=== PATIENT | male | born 1975 | race Caucasian/White ===

== ENCOUNTER 2016-11-29 18:24 | Emergency (ER) | payer OTHER ==
[~2016-11-29] VITALS: Ht 160 cm; Wt 115.0 kg
[2016-11-29 18:30] VITALS: Ht 160 cm; Wt 115.0 kg
[2016-11-29 19:31] LABS: BASOPHILS % 0.2 % (0.0-2.0); EOSINOPHILS # 0.5 10^3/ul (0.0-0.5); EOSINOPHILS % 3.8 % (0.0-7.0); HEMATOCRIT 44.8 % (42.0-52.0); HEMOGLOBIN 15.4 g/dl (14.0-18.0); LYMPHOCYTES # 3.9 10^3/ul (0.8-2.9); LYMPHOCYTES % 30.6 % (15.0-51.0); MEAN CORPUSCULAR HEMOGLOBIN 30.2 pg (29.0-33.0); MEAN CORPUSCULAR HGB CONC 34.3 g/dl (32.0-37.0); MEAN CORPUSCULAR VOLUME 88.1 fl (82.0-101.0); MEAN PLATELET VOLUME 7.8 fl (7.4-10.4); MONOCYTE # 0.8 10^3/ul (0.3-0.9); NEUTROPHIL # 7.7 10^3/ul (1.6-7.5); NEUTROPHILS % 59.4 % (39.0-77.0); PLATELET COUNT 385 10^3/UL (140-440); RED BLOOD COUNT 5.08 10^6/ul (4.70-6.10); RED CELL DISTRIBUTION WIDTH 13.1 % (11.5-14.5); UNCORRECTED WBC 12.9 10^3/ul (4.8-10.8); WHITE BLOOD COUNT 12.9 10^3/ul (4.8-10.8)
[2016-11-29 19:32] LABS: ADD UMIC YES; CONDITION 1; URINE BILIRUBIN (Dip) NEGATIVE (NEGATIVE); URINE BLOOD (Dip) NEGATIVE (NEGATIVE); URINE COLOR LT. YELLOW (YELLOW); URINE GLUCOSE (Dip) NEGATIVE (NEGATIVE); URINE KETONES (Dip) NEGATIVE (NEGATIVE); URINE LEUKOCYTE ESTERASE (Dip) NEGATIVE (NEGATIVE); URINE NITRITE (Dip) NEGATIVE (NEGATIVE); URINE TOTAL PROTEIN (Dip) 1+ (NEGATIVE); URINE UROBILINOGEN (Dip) 0.2 E.U./dL (0.1-1.0)
[2016-11-29 19:41] LABS: SQUAMOUS EPITHELIAL CELL,UR RARE; URINE RBCS 0-2 /HPF (0)
[2016-11-29 19:46] LABS: CANNABINOIDS Negative (NEGATIVE)
[2016-11-29 19:53] LABS: BARBITURATES Negative (NEGATIVE); BENZODIAZEPINES Negative (NEGATIVE); COCAINE Negative (NEGATIVE); OPIATES Negative (NEGATIVE)
[2016-11-29 20:18] LABS: ALBUMIN 4.2 g/dl (3.3-4.9)
[2016-11-29 20:19] LABS: CHLORIDE 99 mmol/L (97-110); POTASSIUM 3.7 mmol/L (3.5-5.1); SODIUM 142 mmol/L (135-144)
[2016-11-29 20:21] LABS: ALBUMIN/GLOBULIN RATIO 0.97; ANION GAP 17 (8-16); ASPARTATE AMINO TRANSFERASE 43 IU/L (15-46); BILIRUBIN,INDIRECT 0.9 mg/dl (0-1.1); BILIRUBIN,TOTAL 0.9 mg/dl (0.2-1.3); CARBON DIOXIDE 30 mmol/L (21-31); CREATININE 1.12 mg/dl (0.61-1.24); TOTAL PROTEIN 8.5 g/dl (6.1-8.1)
[2016-11-29 20:22] LABS: ALANINE AMINOTRANSFERASE 54 IU/L (13-69); ALKALINE PHOSPHATASE 79 IU/L (42-121); BLOOD UREA NITROGEN 16 mg/dl (7-20); CALCIUM 9.5 mg/dl (8.4-10.2); GLUCOSE 107 mg/dl (70-220)
[2016-11-29 20:23] LABS: ACETAMINOPHEN < 10.0 ug/ml (10.0-30.0); ETHANOL < 10.0 mg/dl; SALICYLATE < 1.0 mg/dl (5.0-30.0)
--- NOTE | 2016-11-29 21:18 | PSY ---
Date/Time of Note Date/Time of Note DATE: 11/29/16 TIME: 21:05 Psychiatric Subjective Eval Consent Pt consented to telemedicine: Yes Subjective Evaluation Patient location: emergency Chief Complaint: BIB [facility] "DEPRESSION AFTER BREAKING UP WITH GIRLFRIEND" DENIES SI, HI Reason for consult: suicidal ideation History of present illness 41M BIB Family for DTS s/o breakup with his girlfriend of 3 years. Patient reports similar episode 10 years ago after a breakup with his girlfriend at that time and ended up being hospitalized for 2 weeks. He endorses feelings of depression and suicidal ideation x 1 day after his argument. Endorses crying spells, poor sleep and feeling unsafe at this time with plans to cut himself. Denies h/o mood swings or psychosis. Past psychiatric history IP: x1 at unknown psych facility x 2 weeks for similar episode OP: none Rx: was on medications previously after first hospitalization but cannot recall SA: attempted to cut himself back in 1996 which led to his first hospitalization Hospitalization: yes Family History denied Medical history Problems Medical Problems: (1) Anxiety Status: Acute (2) Depression Status: Acute Allergies: Coded Allergies: No Known Allergy (Unverified , 11/02/14) Substance Abuse Substance use: No known substance abuse Substance abuse history: No Prior substance abuse treatmen: No Social History Marital status: single Level of education: high school DPA/Conservatorship: No 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/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: works at [employer] Psychiatric Objective Eval Review of Systems: Review of Systems: Not Applicable Physical Examination: Physical Examination: Applicable Sleep: Insomnia Appetite: Adequate Energy: Decreased Interest: Decreased Mental Status Examination: Appearance: Groomed Eye Contact: Fair Psychomotor Activity: Normal Behavior: Cooperative Speech: Clear AFFECT: Depressed Mood: Depressed Though Process: Linear Thought Content: Other (hopelessness) Suicidal: Yes Homicidal: No On 72 hour hold: No Orientation: x4 Cognition: Alert Insight: Impared Judgement: Impared Attention Span: Intact Laboratory Results Laboratory Tests Test 11/29/16 19:15 Acetaminophen Level < 10.0ug/ml Alanine Aminotransferase (ALT/SGPT) 54IU/L Albumin 4.2g/dl Albumin/Globulin Ratio 0.97 Alkaline Phosphatase 79IU/L Anion Gap 17 Aspartate Amino Transf (AST/SGOT) 43IU/L Basophils # 0.010^3/ul Basophils % 0.2% Blood Urea Nitrogen 16mg/dl Calcium Level 9.5mg/dl Carbon Dioxide Level 30mmol/L Chloride Level 99mmol/L Creatinine 1.12mg/dl Direct Bilirubin 0.00mg/dl Eosinophils # 0.510^3/ul Eosinophils % 3.8% Ethyl Alcohol Level < 10.0mg/dl Globulin 4.30g/dl Glucose Level 107mg/dl Hematocrit 44.8% Hemoglobin 15.4g/dl Indirect Bilirubin 0.9mg/dl Lymphocytes # 3.910^3/ul Lymphocytes % 30.6% Mean Corpuscular Hemoglobin 30.2pg Mean Corpuscular Hemoglobin Concent 34.3g/dl Mean Corpuscular Volume 88.1fl Mean Platelet Volume 7.8fl Monocytes # 0.810^3/ul Monocytes % 6.0% Neutrophils # 7.710^3/ul Neutrophils % 59.4% Nucleated Red Blood Cells # 0.010^3/ul Nucleated Red Blood Cells % 0.0/100WBC Platelet Count 11220^3/UL Potassium Level 3.7mmol/L Red Blood Count 5.0810^6/ul Red Cell Distribution Width 13.1% Salicylates Level < 1.0mg/dl Sodium Level 142mmol/L Total Bilirubin 0.9mg/dl Total Protein 8.5g/dl Urine Amphetamines Screen Negative Urine Barbiturates Negative Urine Benzodiazepines Screen Negative Urine Bilirubin NEGATIVE Urine Cannabinoids Negative Urine Clarity CLEAR Urine Cocaine Screen Negative Urine Color LT. YELLOW Urine Glucose NEGATIVE% Urine Hemoglobin NEGATIVE Urine Ketones NEGATIVE Urine Leukocyte Esterase NEGATIVE Urine Microscopic RBC 0-2/HPF Urine Microscopic WBC 0-2/HPF Urine Nitrite NEGATIVE Urine Opiates Screen Negative Urine Specific [place] 1.025 Urine Squamous Epithelial Cells RARE Urine Total Protein 1+ Urine Urobilinogen 0.2 E.U./dL Urine pH 6.0 White Blood Count 12.910^3/ul Assessment and Plan Assessment/Diagnosis [place] I: Depression, unspecified; r/o adjustment disorder [place] II: deferred [place] III: see medical chart [place] IV: primary support system [place] V: GAF 30 Recommendation/Plan Medication Management Follow-up/Disposition At this time, given recent stressor and h/o self-harm in similar situation, patient remains at risk for danger to self and would benefit from stabilization on inpatient psychiatric unit. He is willingly to accept VOLUNTARY treatment on an inpatient psychiatric unit. If circumstances change and he refused admission , a 5150 hold may be warranted at that time and would require a new consult at that time. 1) Admit to Inpatient psych VOLUNTARY 2) If refuses, place new consult for possible 5150 hold. 5150 Recommendation: VOLUNTARY admission, no hold warranted at this time. LUCIA BRIAN MD Nov 29, 2016 21:17
--- NOTE | 2016-11-29 21:25 | ERA ---
ER Documentation Chief Complaint Date/Time DATE: 11/29/16 TIME: 21:23 Chief Complaint BIB [facility]ATH[facility] "DEPRESSION AFTER BREAKING UP WITH GIRLFRIEND" DENIES SI, HI HPI This is a 41-year-old male who presents to the emergency room for evaluation of depression. The patient does state that he has been feeling depressed for the past 2 days because he broke up with his girlfriend. The patient states that he wants to kill himself, he does not have a plan site in place. This patient is accompanied with a family friend who states that he has tried to cut himself previously. The patient denies any cutting today. The patient came to the ER for evaluation and denies taking any illicit drugs or alcohol. ROS All systems reviewed and are negative except as per history of present illness. Medications Home Meds No Active Prescriptions or Reported Meds Allergies Allergies: Coded Allergies: No Known Allergy (Unverified , 11/02/14) PMhx/Soc History of Surgery: No Anesthesia Reaction: No Hx Neurological Disorder: No Hx Respiratory Disorders: No Hx Cardiac Disorders: No Hx Psychiatric Problems: Yes (Depression) Hx Miscellaneous Medical Probl: No Hx Alcohol Use: Yes (social) Hx Substance Use: No Hx Tobacco Use: Yes Smoking Status: Never smoker Physical Exam Vitals Vital Signs Date Time Temp Pulse Resp B/P Pulse Ox O2 Delivery O2 Flow Rate FiO2 11/29/16 18:30 97.8 87 18 193/99 99 Physical Exam Const: No acute distress Head: Atraumatic Eyes: Normal Conjunctiva ENT: Normal External Ears, Nose and Mouth. Neck: Full range of motion..~ No meningismus. Resp: Clear to auscultation bilaterally Cardio: Regular rate and rhythm, no murmurs Abd: Soft, non tender, non distended. Normal bowel sounds Skin: No petechiae or rashes Back: No midline or flank tenderness Ext: No cyanosis, or edema Neur: Awake and alert Psych: Flat affect, tearful Result Diagram: 11/29/16191411/29/161914 Results 24 hrs Laboratory Tests Test 11/29/16 19:15 Acetaminophen Level < 10.0ug/ml Alanine Aminotransferase (ALT/SGPT) 54IU/L Albumin 4.2g/dl Albumin/Globulin Ratio 0.97 Alkaline Phosphatase 79IU/L Anion Gap 17 Aspartate Amino Transf (AST/SGOT) 43IU/L Basophils # 0.010^3/ul Basophils % 0.2% Blood Urea Nitrogen 16mg/dl Calcium Level 9.5mg/dl Carbon Dioxide Level 30mmol/L Chloride Level 99mmol/L Creatinine 1.12mg/dl Direct Bilirubin 0.00mg/dl Eosinophils # 0.510^3/ul Eosinophils % 3.8% Ethyl Alcohol Level < 10.0mg/dl Globulin 4.30g/dl Glucose Level 107mg/dl Hematocrit 44.8% Hemoglobin 15.4g/dl Indirect Bilirubin 0.9mg/dl Lymphocytes # 3.910^3/ul Lymphocytes % 30.6% Mean Corpuscular Hemoglobin 30.2pg Mean Corpuscular Hemoglobin Concent 34.3g/dl Mean Corpuscular Volume 88.1fl Mean Platelet Volume 7.8fl Monocytes # 0.810^3/ul Monocytes % 6.0% Neutrophils # 7.710^3/ul Neutrophils % 59.4% Nucleated Red Blood Cells # 0.010^3/ul Nucleated Red Blood Cells % 0.0/100WBC Platelet Count 42687^3/UL Potassium Level 3.7mmol/L Red Blood Count 5.0810^6/ul Red Cell Distribution Width 13.1% Salicylates Level < 1.0mg/dl Sodium Level 142mmol/L Total Bilirubin 0.9mg/dl Total Protein 8.5g/dl Urine Amphetamines Screen Negative Urine Barbiturates Negative Urine Benzodiazepines Screen Negative Urine Bilirubin NEGATIVE Urine Cannabinoids Negative Urine Clarity CLEAR Urine Cocaine Screen Negative Urine Color LT. YELLOW Urine Glucose NEGATIVE% Urine Hemoglobin NEGATIVE Urine Ketones NEGATIVE Urine Leukocyte Esterase NEGATIVE Urine Microscopic RBC 0-2/HPF Urine Microscopic WBC 0-2/HPF Urine Nitrite NEGATIVE Urine Opiates Screen Negative Urine Specific [place] 1.025 Urine Squamous Epithelial Cells RARE Urine Total Protein 1+ Urine Urobilinogen 0.2 E.U./dL Urine pH 6.0 White Blood Count 12.910^3/ul Procedures/MDM This 41-year-old male presents to the ER for evaluation of depression and suicidal ideation after breaking up with his girlfriend. He has noticed plans in place. He was medically cleared, and was seen by tele-psych who recommended voluntary admission to inpatient psychiatric unit. We will try to transfer this patient to accepting facility at this time. Patient presents with symptomatology consistent with the decompensation of previously diagnosed psychiatric disease. Based on history, physical exam and appropriate lab tests , I appreciate no evidence of significant life-threatening injury or illness that includes a psychiatric hospitalization. Patient is thus "medically clear" for psychiatric admission. In regards to the psychiatric complaints, this patient has clear evidence of high risk psychiatric symptoms with significant risk for decompensation, thus requiring admission to the hospital for stabilization. Departure Diagnosis: Primary Impression: Depression Additional Impression: Suicidal ideation Condition: TYESHA Mcginins DO Nov 29, 2016 21:25
[2016-11-30] MEDS ORDERED: ACETAMINOPHEN 325 MG TAB PO ONE (09:00)
[2016-11-30] MEDS ORDERED: NICARDipine HCL 30 MG CAPSULE PO ONE (12:00)
[2016-11-30] MEDS ORDERED: LORAZEPAM 1 MG TAB PO ONE (17:00)
[2016-11-30] MEDS ORDERED: IBUPROFEN 600 MG TAB PO ONE (20:00)
[2016-11-30 22:48] VITALS: BP 138/81; PULSE 94; RESP 17; TEMP 98.1
== END 2016-11-30 22:56 ==
LOC: E/R 18:24
DX: F32.9 Major depressive disorder, single episode, unspecified (principal); R40.2252 Coma scale, best verbal response, oriented, at arrival to emergency department; R45.851 Suicidal ideations; R40.2142 Coma scale, eyes open, spontaneous, at arrival to emergency department; R40.2362 Coma scale, best motor response, obeys commands, at arrival to emergency department; Z87.891 Personal history of nicotine dependence
CPT/HCPCS: 36415; 80053; 80306; 80307; 81001; 81003; 85025; 99285

== ENCOUNTER 2017-04-15 17:21 | Emergency (ER) | payer OTHER ==
[~2017-04-15] VITALS: Ht 160 cm; Wt 115.0 kg
[2017-04-15 17:23] VITALS: Ht 160 cm; Wt 115.0 kg
[2017-04-15 18:16] LABS: BASOPHILS % 0.4 % (0.0-2.0); EOSINOPHILS # 0.4 10^3/ul (0.0-0.5); EOSINOPHILS % 3.5 % (0.0-7.0); HEMOGLOBIN 15.2 g/dl (14.0-18.0); LYMPHOCYTES # 2.1 10^3/ul (0.8-2.9); LYMPHOCYTES % 20.1 % (15.0-51.0); MEAN CORPUSCULAR HEMOGLOBIN 29.5 pg (29.0-33.0); MEAN CORPUSCULAR VOLUME 89.1 fl (82.0-101.0); MEAN PLATELET VOLUME 9.3 fl (7.4-10.4); MONOCYTE # 0.5 10^3/ul (0.3-0.9); MONOCYTES % 5.1 % (0.0-11.0); NEUTROPHIL # 7.5 10^3/ul (1.6-7.5); NEUTROPHILS % 70.5 % (39.0-77.0); PLATELET COUNT 387 10^3/UL (140-415); RED BLOOD COUNT 5.16 10^6/ul (4.70-6.10); RED CELL DISTRIBUTION WIDTH 12.6 % (11.5-14.5); WHITE BLOOD COUNT 10.6 10^3/ul (4.8-10.8)
[2017-04-15 18:25] LABS: ADD UMIC YES; UR ASCORBIC ACID NEGATIVE (NEGATIVE); UR BILIRUBIN (Dip) NEGATIVE (NEGATIVE); UR BLOOD (Dip) 1+ mg/dL (NEGATIVE); UR CLARITY SLIGHTLY CLOUDY (CLEAR); UR COLOR AMBER (YELLOW); UR GLUCOSE (Dip) NEGATIVE (NEGATIVE); UR KETONES (Dip) NEGATIVE (NEGATIVE); UR LEUKOCYTE ESTERASE (Dip) NEGATIVE Leu/ul (NEGATIVE); UR MUCUS FEW /HPF (NONE SEEN); UR NITRITE (Dip) NEGATIVE (NEGATIVE); UR RBC 25 /HPF (0-5); UR SPECIFIC GRAVITY (Dip) 1.021 (1.003-1.030); UR TOTAL PROTEIN (Dip) 2+ mg/dl (NEGATIVE); UR UROBILINOGEN (Dip) NEGATIVE (NEGATIVE)
[2017-04-15 18:47] LABS: ALANINE AMINOTRANSFERASE 47 IU/L (13-69); ALBUMIN/GLOBULIN RATIO 1.35; ALKALINE PHOSPHATASE 66 IU/L (42-121); ANION GAP 13 (8-16); ASPARTATE AMINO TRANSFERASE 38 IU/L (15-46); BLOOD UREA NITROGEN 18 mg/dl (7-20); CALCIUM 9.8 mg/dl (8.4-10.2); CARBON DIOXIDE 30 mmol/L (21-31); CHLORIDE 100 mmol/L (97-110); CREATININE 1.43 mg/dl (0.61-1.24); GLUCOSE 147 mg/dl (70-220); POTASSIUM 3.9 mmol/L (3.5-5.1); SODIUM 139 mmol/L (135-144); TOTAL PROTEIN 8.7 g/dl (6.1-8.1)
[2017-04-15 18:50] LABS: BARBITURATES Negative (NEGATIVE); BENZODIAZEPINES Negative (NEGATIVE); CANNABINOIDS Negative (NEGATIVE); COCAINE Negative (NEGATIVE); OPIATES Negative (NEGATIVE)
[2017-04-15 18:50] LABS: ACETAMINOPHEN < 10.0 ug/ml (10.0-30.0); ETHANOL < 10.0 mg/dl; SALICYLATE < 1.0 mg/dl (5.0-30.0)
--- NOTE | 2017-04-15 19:43 | ERA ---
ER Documentation Chief Complaint Date/Time DATE: 04/15/17 TIME: 19:42 Chief Complaint Complains of feeling depressed today HPI This 41-year-old male presents to the emergency room for evaluation of depression, and suicidal ideation. He states that he has been under a lot of stress, and states that today his bus pass and he was feeling very stressed out and wanted to hurt himself. The patient had no specific plan to hurt himself however he came to the ER for evaluation. ROS All systems reviewed and are negative except as per history of present illness. Medications Home Meds No Active Prescriptions or Reported Meds Allergies Allergies: Coded Allergies: No Known Allergy (Unverified , 11/30/16) PMhx/Soc History of Surgery: No Anesthesia Reaction: No Hx Neurological Disorder: No Hx Respiratory Disorders: No Hx Cardiac Disorders: No Hx Psychiatric Problems: Yes (Depression) Hx Miscellaneous Medical Probl: No Hx Alcohol Use: Yes (social) Hx Substance Use: No Hx Tobacco Use: Yes Smoking Status: Current every day smoker Physical Exam Vitals Vital Signs Date Time Temp Pulse Resp B/P Pulse Ox O2 Delivery O2 Flow Rate FiO2 04/15/17 17:23 98.1 121 20 152/84 94 Physical Exam Const: No acute distress Head: Atraumatic Eyes: Normal Conjunctiva ENT: Normal External Ears, Nose and Mouth. Neck: Full range of motion..~ No meningismus. Resp: Clear to auscultation bilaterally Cardio: Regular rate and rhythm, no murmurs Abd: Soft, non tender, non distended. Normal bowel sounds Skin: No petechiae or rashes Back: No midline or flank tenderness Ext: No cyanosis, or edema Neur: Awake and alert Psych: Normal Mood and Affect Result Diagram: 04/15/17 1804 04/15/17 1804 Results 24 hrs Laboratory Tests Test 04/15/17 18:04 04/15/17 18:05 White Blood Count 10.610^3/ul Red Blood Count 5.1610^6/ul Hemoglobin 15.2g/dl Hematocrit 46.0% Mean Corpuscular Volume 89.1fl Mean Corpuscular Hemoglobin 29.5pg Mean Corpuscular Hemoglobin Concent 33.0g/dl Red Cell Distribution Width 12.6% Platelet Count 35137^3/UL Mean Platelet Volume 9.3fl Neutrophils % 70.5% Lymphocytes % 20.1% Monocytes % 5.1% Eosinophils % 3.5% Basophils % 0.4% Nucleated Red Blood Cells % 0.0/100WBC Neutrophils # 7.510^3/ul Lymphocytes # 2.110^3/ul Monocytes # 0.510^3/ul Eosinophils # 0.410^3/ul Basophils # 0.010^3/ul Nucleated Red Blood Cells # 0.010^3/ul Urine Color MORE Urine Clarity SLIGHTLY CLOUDY Urine pH 5.0 Urine Specific [place] 1.021 Urine Ketones NEGATIVEmg/dL Urine Nitrite NEGATIVEmg/dL Urine Bilirubin NEGATIVEmg/dL Urine Urobilinogen NEGATIVEmg/dL Urine Leukocyte Esterase NEGATIVELeu/ul Urine Microscopic RBC 25/HPF Urine Microscopic WBC 6/HPF Urine Mucus FEW/HPF Urine Hemoglobin 1+mg/dL Urine Glucose NEGATIVEmg/dL Urine Total Protein 2+mg/dl Sodium Level 139mmol/L Potassium Level 3.9mmol/L Chloride Level 100mmol/L Carbon Dioxide Level 30mmol/L Anion Gap 13 Blood Urea Nitrogen 18mg/dl Creatinine 1.43mg/dl Glucose Level 147mg/dl Calcium Level 9.8mg/dl Total Bilirubin 1.0mg/dl Direct Bilirubin 0.00mg/dl Indirect Bilirubin 1.0mg/dl Aspartate Amino Transf (AST/SGOT) 38IU/L Alanine Aminotransferase (ALT/SGPT) 47IU/L Alkaline Phosphatase 66IU/L Total Protein 8.7g/dl Albumin 5.0g/dl Globulin 3.70g/dl Albumin/Globulin Ratio 1.35 Salicylates Level < 1.0mg/dl Acetaminophen Level < 10.0ug/ml Ethyl Alcohol Level < 10.0mg/dl Urine Opiates Screen Negative Urine Barbiturates Negative Urine Amphetamines Screen Negative Urine Benzodiazepines Screen Negative Urine Cocaine Screen Negative Urine Cannabinoids Negative Procedures/MDM This 41-year-old male presents to the ER for evaluation of depression and suicidal ideation. He has been medically cleared and will be evaluated by psychiatric evaluation team to determine whether or not this patient needs inpatient psychiatric admission. Patient presents with symptomatology consistent with the decompensation of previously diagnosed psychiatric disease. Based on history, physical exam and appropriate lab tests, I appreciate no evidence of significant life-threatening injury or illness that includes a psychiatric hospitalization. Patient is thus "medically clear" for psychiatric admission. In regards to the psychiatric complaints, this patient has clear evidence of high risk psychiatric symptoms with significant risk for decompensation, thus requiring admission to the hospital for stabilization. Departure Diagnosis: Primary Impression: Depression Condition: Stable TYESHA NEFF DO Apr 15, 2017 19:43
[2017-04-15] MEDS ORDERED: PARO10TA76 PO (20:03)
[2017-04-15] MEDS ORDERED: IBUP-1542 PO (20:04)
--- NOTE | 2017-04-15 20:52 | PSY ---
Date/Time of Note Date/Time of Note DATE: 04/15/17 TIME: 20:46 Psychiatric Subjective Eval Consent Pt consented to telemedicine: Yes Subjective Evaluation Patient location: emergency Chief Complaint: Complains of feeling depressed today Reason for consult: Depression and suicidal ideation History of present illness Pt reports that he has a history of depression. He has been suicidal for two days. There are no recent triggers, no new issues. Per dad, he has been unstable for some time and family is very concerned about him. Pt does not report ideas for how to kill himself; however, when he acknowledged a past attempt, he responded "same way" when asked how he attempted. The appear to be some language issues. Pt reports depression,anhedonia, not sleeping well and suicidal thoughts. He denies hallucinations and delusions. Past psychiatric history He has been psychiatric hospitalized and has attempted suicide prior. Hospitalization: yes Family History Denies Medical history Problems Medical Problems: (1) Anxiety Status: Acute (2) Depression Status: Acute (3) Depression Status: Acute (4) Suicidal ideation Status: Acute Allergies: Coded Allergies: No Known Allergy (Unverified , 04/15/17) Substance Abuse Substance use: No known substance abuse Substance abuse history: No Social History Marital status: single Level of education: HS DPA/Conservatorship: No Occupation/[employer]: [employer] Psychiatric Objective Eval Physical Examination: Physical Examination: Applicable Sleep: Insomnia Energy: Decreased Interest: Decreased Mental Status Examination: Appearance: Groomed Eye Contact: Good Psychomotor Activity: Slow Behavior: Cooperative Speech: Soft AFFECT: Flat Mood: Depressed Though Process: Linear Thought Content: Normal Suicidal: Yes Homicidal: No On 72 hour hold: No Orientation: x4 Cognition: Alert Insight: Impared Judgement: Impared Attention Span: Intact Laboratory Results Laboratory Tests Test 04/15/17 18:04 04/15/17 18:05 White Blood Count 10.610^3/ul Red Blood Count 5.1610^6/ul Hemoglobin 15.2g/dl Hematocrit 46.0% Mean Corpuscular Volume 89.1fl Mean Corpuscular Hemoglobin 29.5pg Mean Corpuscular Hemoglobin Concent 33.0g/dl Red Cell Distribution Width 12.6% Platelet Count 06009^3/UL Mean Platelet Volume 9.3fl Neutrophils % 70.5% Lymphocytes % 20.1% Monocytes % 5.1% Eosinophils % 3.5% Basophils % 0.4% Nucleated Red Blood Cells % 0.0/100WBC Neutrophils # 7.510^3/ul Lymphocytes # 2.110^3/ul Monocytes # 0.510^3/ul Eosinophils # 0.410^3/ul Basophils # 0.010^3/ul Nucleated Red Blood Cells # 0.010^3/ul Urine Color MORE Urine Clarity SLIGHTLY CLOUDY Urine pH 5.0 Urine Specific [place] 1.021 Urine Ketones NEGATIVEmg/dL Urine Nitrite NEGATIVEmg/dL Urine Bilirubin NEGATIVEmg/dL Urine Urobilinogen NEGATIVEmg/dL Urine Leukocyte Esterase NEGATIVELeu/ul Urine Microscopic RBC 25/HPF Urine Microscopic WBC 6/HPF Urine Mucus FEW/HPF Urine Hemoglobin 1+mg/dL Urine Glucose NEGATIVEmg/dL Urine Total Protein 2+mg/dl Sodium Level 139mmol/L Potassium Level 3.9mmol/L Chloride Level 100mmol/L Carbon Dioxide Level 30mmol/L Anion Gap 13 Blood Urea Nitrogen 18mg/dl Creatinine 1.43mg/dl Glucose Level 147mg/dl Calcium Level 9.8mg/dl Total Bilirubin 1.0mg/dl Direct Bilirubin 0.00mg/dl Indirect Bilirubin 1.0mg/dl Aspartate Amino Transf (AST/SGOT) 38IU/L Alanine Aminotransferase (ALT/SGPT) 47IU/L Alkaline Phosphatase 66IU/L Total Protein 8.7g/dl Albumin 5.0g/dl Globulin 3.70g/dl Albumin/Globulin Ratio 1.35 Salicylates Level < 1.0mg/dl Acetaminophen Level < 10.0ug/ml Ethyl Alcohol Level < 10.0mg/dl Urine Opiates Screen Negative Urine Barbiturates Negative Urine Amphetamines Screen Negative Urine Benzodiazepines Screen Negative Urine Cocaine Screen Negative Urine Cannabinoids Negative Assessment and Plan Assessment/Diagnosis [place] I: Major Depressive Disorder, Recurrent, Severe without psychosis Recommendation/Plan Medication Management Per inpatient psychiatry Psychotherapy Brief supportive therapy Pt. Caregiver/Family Education Discussed with his father. They are hoping for a longer hospital stay Follow-up/Disposition Recommend 5150 for DTS. Please do not let the fact that he cannot verbalize a plan deter from the 5150 or admission. He has a documented past attempt in his chart but could not state to me today how he attempted. Recommend transfer to inpatient psychiatry. 5150 Recommendation: [facility] Rene YEN MCFARLAND Apr 15, 2017 20:52
[2017-04-16 02:40] VITALS: BP 150/81; PULSE 74; RESP 17; TEMP 98.2
== END 2017-04-16 03:28 ==
LOC: E/R 17:21
DX: F32.9 Major depressive disorder, single episode, unspecified (principal); F17.210 Nicotine dependence, cigarettes, uncomplicated
CPT/HCPCS: 36415; 80053; 80306; 80307; 81001; 85025; 99285

== ENCOUNTER 2017-05-17 17:05 | Emergency (ER) | payer OTHER ==
[~2017-05-17] VITALS: Ht 160 cm; Wt 112.0 kg
[~2017-05-17 17:05] MED LIST: IBUP-1542 PO; PARO10TA76 PO
[2017-05-17 17:18] VITALS: Ht 160 cm; Wt 112.0 kg
--- NOTE | 2017-05-17 17:38 | ERA ---
ER Documentation Chief Complaint Date/Time DATE: 05/17/17 TIME: 17:37 Chief Complaint PT with SI X 2 days, plans to take pills to kill himself. HPI This is a very pleasant 41-year-old male that presents to the emergency department stating he is experiencing suicidal thoughts and ideations for the past 48 hours. The patient has a plan as he states he wants to take a pill to kill himself. When asked what type of pill he stated any pill he can get his hands on. He indicates he has attempted suicide in the past and has been admitted to a psychiatric facility 1 month ago for similar symptoms. The patient lives with his mother and father and states he feels safe at home. He has had no chest pain or pressure denies any shortness of breath. He denies any illicit drug use or alcohol use. He came to the emergency department with his mother who brought him she was concerned due to him expressing suicidal thoughts over the past several days ROS All systems reviewed and are negative except as per history of present illness. Medications Home Meds Reported Medications Ibuprofen* (Ibuprofen*) 600 Mg Tablet, 600 MG PO Q6H Y for PAIN, TAB 04/15/17 Paroxetine Hcl* (Paroxetine*) 10 Mg Tablet, 10 MG PO HS, TAB 04/15/17 Allergies Allergies: Coded Allergies: No Known Allergy (Unverified , 04/15/17) PMhx/Soc History of Surgery: No Anesthesia Reaction: No Hx Neurological Disorder: No Hx Respiratory Disorders: No Hx Cardiac Disorders: No Hx Psychiatric Problems: Yes (Depression) Hx Miscellaneous Medical Probl: No Hx Alcohol Use: Yes (social) Hx Substance Use: No Hx Tobacco Use: Yes Physical Exam Vitals Vital Signs Date Time Temp Pulse Resp B/P Pulse Ox O2 Delivery O2 Flow Rate FiO2 05/17/17 17:18 98.2 110 20 147/80 96 Physical Exam Constitutional:Well-developed. Well-nourished. HEENT:Normocephalic. Atraumatic.Pupils were equal round reactive to light. Moist mucous membranes.No tonsillar exudates. Neck: No nuchal rigidity. No lymphadenopathy. No posterior cervical spine tenderness or step-offs. Respiratory: Not using accessory muscles of respiration.Lungs were clear to auscultation bilaterally. No rhonchi. No rales. No wheezing. Cardiovascular: Regular rate regular rhythm.No murmurs. No rubs were appreciated.S1, S2 normal. Distal pulses are palpable 2+ bilaterally. GI: Abdomen was soft. Nontender. Non Distended. No pulsatile abdominal masses or bruits. No rebound. No guarding. Bowel sounds were present and normal. Muscle skeletal: Full range of motion of both the upper and lower extremities bilaterally.Normal muscle tone.No assymetrical calf tenderness or swelling. Skin: No petechia, no purpura. No lesions on the palms or the soles of the feet. No maculopapular rash. NEURO: Patient was alert, awake, orientated x3.No facial droop. Gait observed and normal with no ataxia.Speech had regular rate and rhythm. No focal neurological deficits. The patient made good eye contact and spoke in a soft tone. He stated he had suicidal thoughts ideations with no auditory tactile or visual hallucinations Result Diagram: 05/17/17 1749 05/17/17 1749 Results 24 hrs Laboratory Tests Test 05/17/17 17:47 05/17/17 17:49 Urine Color YELLOW Urine Clarity CLEAR Urine pH 5.0 Urine Specific [place] 1.020 Urine Ketones NEGATIVEmg/dL Urine Nitrite NEGATIVEmg/dL Urine Bilirubin NEGATIVEmg/dL Urine Urobilinogen NEGATIVEmg/dL Urine Leukocyte Esterase NEGATIVELeu/ul Urine Microscopic RBC 0/HPF Urine Microscopic WBC 1/HPF Urine Hemoglobin NEGATIVEmg/dL Urine Glucose NEGATIVEmg/dL Urine Total Protein 1+mg/dl Urine Opiates Screen Negative Urine Barbiturates Negative Urine Amphetamines Screen Negative Urine Benzodiazepines Screen Negative Urine Cocaine Screen Negative Urine Cannabinoids Negative White Blood Count 11.210^3/ul Red Blood Count 4.8110^6/ul Hemoglobin 14.5g/dl Hematocrit 42.5% Mean Corpuscular Volume 88.4fl Mean Corpuscular Hemoglobin 30.1pg Mean Corpuscular Hemoglobin Concent 34.1g/dl Red Cell Distribution Width 12.6% Platelet Count 27642^3/UL Mean Platelet Volume 9.8fl Neutrophils % 57.7% Lymphocytes % 31.8% Monocytes % 5.4% Eosinophils % 4.3% Basophils % 0.4% Nucleated Red Blood Cells % 0.0/100WBC Neutrophils # 6.510^3/ul Lymphocytes # 3.610^3/ul Monocytes # 0.610^3/ul Eosinophils # 0.510^3/ul Basophils # 0.110^3/ul Nucleated Red Blood Cells # 0.010^3/ul Prothrombin Time 12.2Sec Prothrombin Time Ratio 1.0 INR International Normalized Ratio 0.91 Activated Partial Thromboplast Time 26.9Sec Sodium Level 143mmol/L Potassium Level 4.4mmol/L Chloride Level 98mmol/L Carbon Dioxide Level 29mmol/L Anion Gap 20 Blood Urea Nitrogen 21mg/dl Creatinine 1.51mg/dl Glucose Level 105mg/dl Calcium Level 10.0mg/dl Total Bilirubin 0.3mg/dl Direct Bilirubin 0.00mg/dl Indirect Bilirubin 0.3mg/dl Aspartate Amino Transf (AST/SGOT) 37IU/L Alanine Aminotransferase (ALT/SGPT) 54IU/L Alkaline Phosphatase 79IU/L Total Protein 9.0g/dl Albumin 4.8g/dl Globulin 4.20g/dl Albumin/Globulin Ratio 1.14 Salicylates Level < 1.0mg/dl Acetaminophen Level < 10.0ug/ml Ethyl Alcohol Level < 10.0mg/dl Current Medications Medications (Trade) Dose Ordered Sig/Gonzalo Route PRN Reason Start Time Stop Time Status Last Admin Dose Admin Paroxetine HCl (Paxil) 20 mg ONCE ONCE PO 05/17/17 19:30 05/17/17 19:31 DC 05/17/17 22:04 Procedures/MDM The patient presented to the emergency department with an active suicidal ideation. My differential diagnosis included but was not limited to major depressive disorder, normal despondency, bipolar disorder, schizophrenia, anxiety disorder, borderline personality disorder, antisocial personality disorder, organic mental disorder, bereavement or alcohol or drug abuse. Ancillary lab work was obtained including blood alcohol level, drug screen and serum toxicology panel. The patient was provided a safe environment while in the emergency department with appropriate supervision. The patient will be seen and evaluated by the tele-psychiatrist to arrange for transfer to a psychiatric facility as the patient was suggested to be placed on a 5150. Departure Diagnosis: Primary Impression: Suicidal ideation Condition: Serious ALLYSON AN May 17, 2017 17:38
[2017-05-17 18:24] LABS: BASOPHIL # 0.1 10^3/ul (0.0-0.1); BASOPHILS % 0.4 % (0.0-2.0); EOSINOPHILS # 0.5 10^3/ul (0.0-0.5); EOSINOPHILS % 4.3 % (0.0-7.0); HEMATOCRIT 42.5 % (42.0-52.0); HEMOGLOBIN 14.5 g/dl (14.0-18.0); LYMPHOCYTES # 3.6 10^3/ul (0.8-2.9); LYMPHOCYTES % 31.8 % (15.0-51.0); MEAN CORPUSCULAR HEMOGLOBIN 30.1 pg (29.0-33.0); MEAN CORPUSCULAR HGB CONC 34.1 g/dl (32.0-37.0); MEAN CORPUSCULAR VOLUME 88.4 fl (82.0-101.0); MEAN PLATELET VOLUME 9.8 fl (7.4-10.4); MONOCYTE # 0.6 10^3/ul (0.3-0.9); MONOCYTES % 5.4 % (0.0-11.0); NEUTROPHIL # 6.5 10^3/ul (1.6-7.5); NEUTROPHILS % 57.7 % (39.0-77.0); PLATELET COUNT 378 10^3/UL (140-415); RED BLOOD COUNT 4.81 10^6/ul (4.70-6.10); RED CELL DISTRIBUTION WIDTH 12.6 % (11.5-14.5); WHITE BLOOD COUNT 11.2 10^3/ul (4.8-10.8)
[2017-05-17 18:40] LABS: INR 0.91; PROTIME 12.2 Sec (12.2-14.2)
[2017-05-17 18:41] LABS: PARTIAL THROMBOPLASTIN TIME 26.9 Sec (25.0-35.0)
[2017-05-17 18:44] LABS: ADD UMIC YES; UR ASCORBIC ACID NEGATIVE (NEGATIVE); UR BILIRUBIN (Dip) NEGATIVE (NEGATIVE); UR BLOOD (Dip) NEGATIVE (NEGATIVE); UR CLARITY CLEAR (CLEAR); UR COLOR YELLOW (YELLOW); UR GLUCOSE (Dip) NEGATIVE (NEGATIVE); UR KETONES (Dip) NEGATIVE (NEGATIVE); UR LEUKOCYTE ESTERASE (Dip) NEGATIVE Leu/ul (NEGATIVE); UR NITRITE (Dip) NEGATIVE (NEGATIVE); UR RBC 0 /HPF (0-5); UR TOTAL PROTEIN (Dip) 1+ mg/dl (NEGATIVE); UR UROBILINOGEN (Dip) NEGATIVE (NEGATIVE)
[2017-05-17 18:45] LABS: ALANINE AMINOTRANSFERASE 54 IU/L (13-69); ALBUMIN 4.8 g/dl (3.3-4.9); ALBUMIN/GLOBULIN RATIO 1.14; ALKALINE PHOSPHATASE 79 IU/L (42-121); ANION GAP 20 (8-16); ASPARTATE AMINO TRANSFERASE 37 IU/L (15-46); BILIRUBIN,INDIRECT 0.3 mg/dl (0-1.1); BILIRUBIN,TOTAL 0.3 mg/dl (0.2-1.3); BLOOD UREA NITROGEN 21 mg/dl (7-20); CARBON DIOXIDE 29 mmol/L (21-31); CHLORIDE 98 mmol/L (97-110); CREATININE 1.51 mg/dl (0.61-1.24); GLUCOSE 105 mg/dl (70-220); POTASSIUM 4.4 mmol/L (3.5-5.1); SODIUM 143 mmol/L (135-144)
[2017-05-17 18:48] LABS: ACETAMINOPHEN < 10.0 ug/ml (10.0-30.0); ETHANOL < 10.0 mg/dl; SALICYLATE < 1.0 mg/dl (5.0-30.0)
[2017-05-17 19:14] LABS: BARBITURATES Negative (NEGATIVE); BENZODIAZEPINES Negative (NEGATIVE); CANNABINOIDS Negative (NEGATIVE); COCAINE Negative (NEGATIVE); OPIATES Negative (NEGATIVE)
[2017-05-17] MEDS ORDERED: PAROXETINE 20 MG TAB PO ONE (19:30)
--- NOTE | 2017-05-17 22:47 | PSY ---
Date/Time of Note Date/Time of Note DATE: 05/17/17 TIME: 22:36 Psychiatric Subjective Eval Consent Pt consented to telemedicine: Yes Subjective Evaluation Patient location: emergency Chief Complaint: PT with SI X 2 days, plans to take pills to kill himself. Medical history Problems Medical Problems: (1) Anxiety Status: Acute (2) Depression Status: Acute (3) Depression Status: Acute (4) Suicidal ideation Status: Acute (5) Suicidal ideation Status: Acute Allergies: Coded Allergies: No Known Allergy (Unverified , 04/15/17) Psychiatric Objective Eval Mental Status Examination: Laboratory Results Laboratory Tests Test 05/17/17 17:47 05/17/17 17:49 Urine Color YELLOW Urine Clarity CLEAR Urine pH 5.0 Urine Specific [place] 1.020 Urine Ketones NEGATIVEmg/dL Urine Nitrite NEGATIVEmg/dL Urine Bilirubin NEGATIVEmg/dL Urine Urobilinogen NEGATIVEmg/dL Urine Leukocyte Esterase NEGATIVELeu/ul Urine Microscopic RBC 0/HPF Urine Microscopic WBC 1/HPF Urine Hemoglobin NEGATIVEmg/dL Urine Glucose NEGATIVEmg/dL Urine Total Protein 1+mg/dl Urine Opiates Screen Negative Urine Barbiturates Negative Urine Amphetamines Screen Negative Urine Benzodiazepines Screen Negative Urine Cocaine Screen Negative Urine Cannabinoids Negative White Blood Count 11.210^3/ul Red Blood Count 4.8110^6/ul Hemoglobin 14.5g/dl Hematocrit 42.5% Mean Corpuscular Volume 88.4fl Mean Corpuscular Hemoglobin 30.1pg Mean Corpuscular Hemoglobin Concent 34.1g/dl Red Cell Distribution Width 12.6% Platelet Count 62376^3/UL Mean Platelet Volume 9.8fl Neutrophils % 57.7% Lymphocytes % 31.8% Monocytes % 5.4% Eosinophils % 4.3% Basophils % 0.4% Nucleated Red Blood Cells % 0.0/100WBC Neutrophils # 6.510^3/ul Lymphocytes # 3.610^3/ul Monocytes # 0.610^3/ul Eosinophils # 0.510^3/ul Basophils # 0.110^3/ul Nucleated Red Blood Cells # 0.010^3/ul Prothrombin Time 12.2Sec Prothrombin Time Ratio 1.0 INR International Normalized Ratio 0.91 Activated Partial Thromboplast Time 26.9Sec Sodium Level 143mmol/L Potassium Level 4.4mmol/L Chloride Level 98mmol/L Carbon Dioxide Level 29mmol/L Anion Gap 20 Blood Urea Nitrogen 21mg/dl Creatinine 1.51mg/dl Glucose Level 105mg/dl Calcium Level 10.0mg/dl Total Bilirubin 0.3mg/dl Direct Bilirubin 0.00mg/dl Indirect Bilirubin 0.3mg/dl Aspartate Amino Transf (AST/SGOT) 37IU/L Alanine Aminotransferase (ALT/SGPT) 54IU/L Alkaline Phosphatase 79IU/L Total Protein 9.0g/dl Albumin 4.8g/dl Globulin 4.20g/dl Albumin/Globulin Ratio 1.14 Salicylates Level < 1.0mg/dl Acetaminophen Level < 10.0ug/ml Ethyl Alcohol Level < 10.0mg/dl Assessment Additional comments: IDENTIFYING INFORMATION: 41 year old Male patient who is currently located at the hospital and for whom psychiatric consultation was requested. SOURCES OF INFORMATION: The patient who appears to be somewhat reliable and the medical records; the nursing staff. CHIEF COMPLAINT: "I tried to kill myself". HISTORY OF PRESENT ILLNESS: The patient was interviewed via telemedicine in the presence of and under the supervision of nursing staff of the hospital. The consent to conducting this interview via telemedicine was obtained by the nursing staff at the hospital. ROM Segura reports that the patient presents with SI of wanting to kill himself. According to the emergency room physician's note, the patient presents with suicidal ideation with plan to take a pill; the SI started approximately 48 hours ago. The patient reports that he has been thinking of killing himself by cutting his veins. Admits to feeling depressed since 2 days ago; admits to anhedonia, low appetite , fatigue, insomnia. Denies having AH, VH, delusions. The patient denies using alcohol heavily or regularly. The patient denies using any other substances. In terms of past psychiatric history, the patient reports having a history of past psychiatric hospitalizations for depression. The patient reports having a history of no past suicide attempts. PAST MEDICAL HISTORY: HTN. CURRENT MEDICATIONS: amlodipine, paxil 20 mg po qhs. ALLERGIES TO MEDICATIONS: NKDA. 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 LABORATORY TESTS: CBC with WBCs of 11.2, CMP with BUN 21, creat 1.51, UDS negative, alcohol was not detected. REVIEW OF SYSTEMS: Constitutional (e.g., fever, weight loss): negative; Eyes, Ears, Nose, Mouth, Throat: negative; Cardiovascular: negative; Respiratory: negative; Gastrointestinal: negative; Genitourinary: negative; Musculoskeletal: negative; Integumentary (skin and/or breast): negative; Neurological: negative; Psychiatric: as per HPI; Endocrine: negative; Hematologic/Lymphatic: negative; Allergic/Immunologic: negative. MENTAL STATUS EXAMINATION: General Appearance and Behavior: Calm, cooperative with the interview, pleasant with the current interviewer, makes poor eye contact, poorly groomed, no abnormal movements noted. Speech: Slow rate, regular rhythm, increased latency, low volume. Flow of thought: sequential, logical, goal-directed. Content of thought: no auditory hallucinations, no visual hallucinations, no delusions, positive for suicidal ideation; no homicidal ideation. Mood: "depressed". Affect: dysthymic, dysphoric, not reactive. Attention: normal based on the interview. Insight: fair. Judgment: poor. Memory: normal based on the interview. Sensorium: alert and oriented to person, place and date. ASSESSMENT: The patient's presentation and history are consistent with the diagnosis of major depressive disorder. Pt presents with a major depressive episode with SI. No evidence of psychosis. Fallon I: major depressive disorder. Fallon II: Deferred. Fallon III: see PMH. Fallon IV: social stressors. Fallon V: GAF: 10. PLAN: - Medication management: Would increase Paxil to 40 mg po qday for MDD; pt already received 20 mg tonight, so would administer another 20 mg po tonight. Risks, benefits, alternatives discussed in detail and the patient provided informed consent to proceed. Would start haloperidol 5 mg IM PRN severe agitation q4 hours. Would start diphenhydramine 50 mg IM PRN severe agitation q4 hours. Would start lorazepam 2 mg IM PRN severe agitation q4 hours Will defer to the inpatient psychiatry team for other medication changes. - Labs: No other laboratory tests are needed at this time. - Psychotherapy: Provided supportive psychotherapy and psychoeducation. - Disposition: Would recommend involuntary admission to the inpatient psychiatric unit given the severity of the patient's psychiatric condition and the fact that the patient is an imminent danger to self and/or others so long as the patient has been cleared medically for admission to psychiatry. Inpatient psychiatric admission is at this time the least restrictive environment where the patient can receive the psychiatric care that is needed. Would place on suicide precautions. The patient fulfills criteria for being placed on involuntary hold due to being a danger to self. Of note, the patient is in agreement with the above plan. I called the emergency room physician who is taking care of the patient, Dr. Ron, to discuss about the above plan but the emergency room physician is not available at this time. I left my phone number with the hospital staff requesting a callback so that the emergency room physician can reach me when they become available. ISRRAEL HATHAWAY MD May 17, 2017 22:46
[2017-05-18] MEDS ORDERED: PAROXETINE 20 MG TAB PO ONE (00:30)
[2017-05-18 03:30] VITALS: BP 131/72; PULSE 77; RESP 18; TEMP 98.6
== END 2017-05-18 03:40 ==
LOC: E/R 17:05
DX: R45.851 Suicidal ideations (principal); Z87.891 Personal history of nicotine dependence
CPT/HCPCS: 80053; 80306; 80307; 81001; 85025; 85610; 85730